=== PATIENT | male | born 2005 | race African-American/Black ===

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

== ENCOUNTER 2023-12-06 13:04 | Emergency (ER) | payer OTHER ==
[2023-12-06 13:24] VITALS: BP 120/78; PULSE 68; RESP 15; TEMP 98.7; BMI 25.1
== END 2023-12-06 14:00 | disposition home or self-care (01) ==
LOC: FER 13:04
DX: M79.622 Pain in left upper arm (principal); R20.2 Paresthesia of skin; V89.2XXA Person injured in unspecified motor-vehicle accident, traffic, initial encounter; Y93.I9 Activity, other involving external motion; Y92.410 Unspecified street and highway as the place of occurrence of the external cause
CPT/HCPCS: 99282-25